=== PATIENT | male | born 1995 | race Two or more races ===

== ENCOUNTER 2017-07-12 22:05 | Emergency (ER) | payer SELFPAY ==
[2017-07-12 23:36] VITALS: BP 123/74; PULSE 63; TEMP 98.2; BMI 25.8
--- NOTE | 2017-07-12 23:41 | PDOC ---
History of Present Illness - History of Present Illness Initial Comments: 07/13/17 00:08 The patient is a 21 year old male, with no significant past medical history, who presents to the emergency department with left sided pleuritic chest pain for about 6 hours. The patient states the pain is localized to the left anterior chest, exacerbated with deep breaths. He reports the pain as stabbing. He denies jaw pain or radiation of pain to his upper extremities. He denies shortness of breath, headache and dizziness. He denies fever, chills, nausea, vomit, diarrhea and constipation. He denies dysuria, frequency, urgency and hematuria. Allergies: NKDA Social history: 1ppd tobacco smoker, no EtOH use <Hilda Randall - Last Filed: 07/13/17 00:08> <Char Barker - Last Filed: 07/13/17 01:46> - General Chief Complaint: Chest Pain Stated Complaint: CHEST PAIN Time Seen by Provider: 07/12/17 23:40 Past History <Hilda Randall - Last Filed: 07/13/17 00:08> - Suicide/Smoking/Psychosocial Hx Smoking History: Never smoked Information on smoking cessation initiated: No Hx Alcohol Use: No Drug/Substance Use Hx: No <Char Barker - Last Filed: 07/13/17 01:46> - Past Medical History Allergies/Adverse Reactions: Allergies Allergy/AdvReac Type Severity Reaction Status Date / Time No Known Allergies Allergy Verified 07/12/17 23:32 Review of Systems - Review of Systems Able to Perform ROS?: Yes Comments:: 07/13/17 00:08 GENERAL/CONSTITUTIONAL: No fever or chills. No weakness. HEAD, EYES, EARS, NOSE AND THROAT: No change in vision. No ear pain or discharge. No sore throat. GASTROINTESTINAL: No nausea, vomiting, diarrhea or constipation. GENITOURINARY: No dysuria, frequency, or change in urination. CARDIOVASCULAR: (+) left sided pleuritic chest pain, No shortness of breath. RESPIRATORY: No cough, wheezing, or hemoptysis. MUSCULOSKELETAL: No joint or muscle swelling or pain. No neck or back pain. SKIN: No rash NEUROLOGIC: No headache, vertigo, loss of consciousness, or change in strength/ sensation. ENDOCRINE: No increased thirst. No abnormal weight change. HEMATOLOGIC/LYMPHATIC: No anemia, easy bleeding, or history of blood clots. ALLERGIC/IMMUNOLOGIC: No hives or skin allergy. <Hilda Randall - Last Filed: 07/13/17 00:08> *Physical Exam - Vital Signs Last Vital Signs Temp Pulse Resp BP Pulse Ox 98.2 F 63 14 123/74 100 07/12/17 23:33 07/12/17 23:33 07/12/17 23:33 07/12/17 23:33 07/12/17 23:33 - Physical Exam Comments: 07/13/17 00:08 Constitutional: Awake, alert, oriented. No acute distress. Head: Normocephalic. Atraumatic Eyes: PERRL. EOMI. Conjunctivae are not pale. ENT: Mucous membranes are moist and intact. Posterior pharynx without exudates or erythema. Uvula midline. Neck: Supple. Full ROM. No lymphadenopathy. No submandibular lymphadenopathy Cardiovascular: Regular rate. Regular rhythm. S1, S2 regular. Distal pulses are 2+ and symmetric. No anterior chest wall tenderness Pulmonary/Chest: No evidence of respiratory distress. Clear to auscultation bilaterally No wheezing, rales or rhonchi. Abdominal: Soft and non-distended. There is no tenderness. No rebound, guarding or rigidity. No organomegaly. No palpable masses. Good bowel sounds. Back: No CVA tenderness. Musculoskeletal: No edema. No cyanosis. No clubbing. Full range of motion in all extremities. Nocalf tenderness. Radial/pedal pulses are intact and 2+ bilaterally Skin: Skin is warm and dry. No petechiae. No purpura. Neurological: Alert and oriented to person, place, and time. Cranial nerves II -XII are grossly intact. Normal speech. Strength is grossly symmetric. No sensory deficits. Psychiatric: Good eye contact. Normal interaction, affect and behavior. <Hilda Randall - Last Filed: 07/13/17 00:08> - Vital Signs Last Vital Signs Temp Pulse Resp BP Pulse Ox 98.2 F 63 14 123/74 100 07/12/17 23:33 07/12/17 23:33 07/12/17 23:33 07/12/17 23:33 07/12/17 23:33 <Char Barker - Last Filed: 07/13/17 01:46> Heart Score/ECG Review - ECG Intrepretation Comment:: 07/12/17 23:41 sinus at 61, nl axis, nl interval, no acute st/t wave findings <Char Barker - Last Filed: 07/13/17 01:46> ED Treatment Course - LABORATORY CBC & Chemistry Diagram: 07/13/17 00:19 07/13/17 00:19 <Char Barker - Last Filed: 07/13/17 01:46> Medical Decision Making - Medical Decision Making 07/13/17 00:16 a/p: 21yo male with L sided pleuritic cp -no chest wall ttp -no infectious etiology/cough/congestion -no rashes -will check labs, ekg, cxr, dimer -no fam hx of sudden cardiac or PE/blood clots -denies family hx of cad -atypical cp 07/13/17 01:11 cxr no acute disease labs reviewed and CBC wnl, CHEM wnl, pending dimer pt has been ambulatory in the ED without any distress or difficulty walking/ breathing 07/13/17 01:44 labs reviewed with the patient. dimer negative pt stable for d/c to home discussed labs with the patient. discussed smoking cessation. discussed all reasons to return to the ED and need for follow up. answered all questions. <Char Barker - Last Filed: 07/13/17 01:46> *DC/Admit/Observation/Transfer - Attestations Scribe Attestion: 07/13/17 00:09 Documentation prepared by Hilda Randall, acting as medical numerical control operator for Char Barker DO, <Hilda Randall - Last Filed: 07/13/17 00:08> - Discharge Dispostion Admit: No - Attestations Physician Attestion: 07/13/17 00:17 I, Dr. Char Barker DO, attest that this document has been prepared under my direction and personally reviewed by me in its entirety. I further attest, that it accurately reflects all work, treatment, procedures and medical decision -making performed by me. <Char Barker - Last Filed: 07/13/17 01:46> Diagnosis at time of Disposition: Atypical chest pain, Tobacco abuse - Discharge Dispostion Disposition: HOME Condition at time of disposition: Stable - Referrals Referrals: Salvador Franklin [Primary Care Provider] - - Patient Instructions Printed Discharge Instructions: DI for Atypical Chest Pain, How to Quit Tobacco Products Additional Instructions: Please follow up with your PMD. Please return to the ED with any further concerns. Please stop smoking. - Post Discharge Activity
[2017-07-13] MEDS ORDERED: ACETAMINOPHEN 325 MG TABLET (FP) PO ONE (00:02)
[2017-07-13] MEDS ORDERED: ACETAMINOPHEN 325 MG TABLET (FP) ONE (00:13)
[2017-07-13 00:34] LABS: BASOPHIL 0.6 % (0-2.0); EOSINOPHIL 2.7 % (0-4.5); MCH 30.2 pg (25.7-33.7); MCHC 33.9 g/dl (32.0-35.9); MEAN PLT VOLUME 8.6 fl (7.5-11.1); NEUTROPHILS 56.1 % (42.8-82.8); PLATELET COUNT 148 K/MM3 (134-434)
[2017-07-13 01:03] LABS: ALBUMIN 4.1 g/dl (3.4-5.0); ALK PHOS 65 U/L (45-117); ANION GAP 10 (8-16); BILIRUBIN,TOTAL 0.3 mg/dL (0.2-1.0); CALCIUM 9.1 mg/dL (8.5-10.1); CO2 26 mmol/L (21-32); CREATININE 0.9 mg/dL (0.7-1.3); GLUCOSE,RANDOM 87 mg/dL (74-106); SGOT/AST 16 U/L (15-37); SGPT/ALT 30 U/L (12-78); TOT PROT 7.6 g/dl (6.4-8.2)
--- NOTE | 2017-07-18 12:14 | EKG ---
Test Reason : Blood Pressure : / mmHG Vent. Rate : 061 BPM Atrial Rate : 061 BPM P-R Int : 140 ms QRS Dur : 100 ms QT Int : 386 ms P-R-T Axes : 061 087 035 degrees QTc Int : 388 ms SINUS RHYTHM WITH MARKED SINUS ARRHYTHMIA OTHERWISE NORMAL ECG NO PREVIOUS ECGS AVAILABLE Confirmed by KING ROMANO MD ([id number]) on 07/18/2017 12:14:08 PM Referred By: Confirmed By:KING ROMANO MD
== END 2017-07-13 02:28 | disposition home or self-care (01) ==
LOC: JER 22:05
DX: R07.89 Other chest pain (principal); Z72.0 Tobacco use
CPT/HCPCS: 36415; 71020-TC; 80053; 85025; 85379; 93005; 93010; 99283-25